=== PATIENT | female | born 1930 | race Caucasian/White ===

== ENCOUNTER 2017-08-27 10:44 | Inpatient (IN) | payer MEDICARE ==
[~2017-08-27] VITALS: Ht 157.5 cm; Wt 52.0 kg
[2017-08-27 11:21] LABS: URINE BLOOD (Dip) POC 2+ (NEGATIVE)
--- NOTE | 2017-08-27 11:22 | ERA ---
ER Documentation Chief Complaint Date/Time DATE: 08/27/17 TIME: 11:21 Chief Complaint FACIAL RASH AND FEVER HPI The patient is a 86-year-old female,presenting to the ER because of fever, facial rash for unknown duration. She is demented, history is limited. She is from home with a caregiver Past medical/surgical history/review of system/social history: unable to obtain due to her condition ROS All systems reviewed and are negative except as per history of present illness. Allergies Allergies: Coded Allergies: No Known Allergy (Unverified , 08/27/17) Physical Exam Vitals Vital Signs Date Time Temp Pulse Resp B/P Pulse Ox O2 Delivery O2 Flow Rate FiO2 08/27/17 15:06 95 18 120/72 100 Room Air 08/27/17 10:56 101.3 101 20 137/63 96 Physical Exam Const: No acute distress. Head: Atraumatic. Eyes: Normal Conjunctiva. bilateral maxillary erythema ENT: Normal External Ears, Nose and Mouth. Neck: Full range of motion. No meningismus. Resp: Clear to auscultation bilaterally. Cardio: Regular rate and rhythm. Abd: Soft, non distended, normal bowel sounds, non tender. Skin: No petechiae or rashes. Back: No midline or flank tenderness. Ext: No cyanosis, or edema. Neur: Limited due to her condition Psych: Unable obtain due to her condition Result Diagram: 08/27/17 1230 08/27/17 1400 Results 24 hrs Laboratory Tests Test 08/27/17 11:15 08/27/17 11:28 08/27/17 12:22 08/27/17 12:30 Urine Color YELLOW Urine Clarity SLIGHTLY CLOUDY Urine pH 6.0 Urine Specific Matthews 1.015 Urine Ketones NEGATIVEmg/dL Urine Nitrite POSITIVEmg/dL Urine Bilirubin NEGATIVEmg/dL Urine Urobilinogen 2+mg/dL Urine Leukocyte Esterase TRACELeu/ul Urine Microscopic RBC 6/HPF Urine Microscopic WBC 45/HPF Urine Bacteria FEW/HPF Urine Mucus FEW/HPF Urine Hemoglobin 1+mg/dL Urine Glucose NEGATIVEmg/dL Urine Total Protein 2+mg/dl Bedside Urine pH (LAB) 7.0 Bedside Urine Protein (LAB) 2+ Bedside Urine Glucose (UA) Negative Bedside Urine Ketones (LAB) Negative Bedside Urine Blood 2+ Bedside Urine Nitrite (LAB) Positive Bedside Urine Leukocyte Esterase (L 1+ Lactic Acid Level 3.2mmol/L White Blood Count 13.110^3/ul Red Blood Count 5.2910^6/ul Hemoglobin 15.9g/dl Hematocrit 46.7% Mean Corpuscular Volume 88.3fl Mean Corpuscular Hemoglobin 30.1pg Mean Corpuscular Hemoglobin Concent 34.0g/dl Red Cell Distribution Width 14.2% Platelet Count 88253^3/UL Mean Platelet Volume 10.8fl Neutrophils % 82.4% Lymphocytes % 8.2% Monocytes % 8.1% Eosinophils % 0.1% Basophils % 0.4% Nucleated Red Blood Cells % 0.0/100WBC Neutrophils # 10.810^3/ul Lymphocytes # 1.110^3/ul Monocytes # 1.110^3/ul Eosinophils # 0.010^3/ul Basophils # 0.110^3/ul Nucleated Red Blood Cells # 0.010^3/ul Test 08/27/17 14:00 Prothrombin Time 12.9Sec Prothrombin Time Ratio 1.0 INR International Normalized Ratio 0.97 Activated Partial Thromboplast Time 32.0Sec Sodium Level 138mmol/L Potassium Level 4.6mmol/L Chloride Level 105mmol/L Carbon Dioxide Level 20mmol/L Anion Gap 18 Blood Urea Nitrogen 14mg/dl Creatinine 0.92mg/dl Glucose Level 111mg/dl Calcium Level 8.5mg/dl Total Bilirubin 0.5mg/dl Direct Bilirubin 0.00mg/dl Indirect Bilirubin 0.5mg/dl Aspartate Amino Transf (AST/SGOT) 38IU/L Alanine Aminotransferase (ALT/SGPT) 41IU/L Alkaline Phosphatase 117IU/L Troponin I < 0.012ng/ml Total Protein 8.0g/dl Albumin 4.0g/dl Globulin 4.00g/dl Albumin/Globulin Ratio 1.00 Current Medications Medications (Trade) Dose Ordered Sig/[place] Route PRN Reason Start Time Stop Time Status Last Admin Dose Admin Acetaminophen (Tylenol Tab) 650 mg ONCE STAT PO 08/27/17 11:26 08/27/17 11:29 DC 08/27/17 11:26 Lidocaine 5 ml 5 ml ONCE ONCE SC 08/27/17 12:30 08/27/17 12:31 DC 08/27/17 13:28 Sodium Chloride 1,470 ml @ 1,470 mls/hr BOLUS X1 ONCE IV 10/9/17 13:30 08/27/17 14:29 DC 08/27/17 13:28 Piperacillin Sod/ Tazobactam Sod 100 ml @ 200 mls/hr ONCE ONCE IVPB 08/27/17 13:30 08/27/17 13:59 DC 08/27/17 15:00 Vancomycin HCl (Vancocin) 250 ml @ 125 mls/hr ONCE IVPB 08/27/17 13:30 08/27/17 15:29 DC Alprazolam (Xanax) 0.25 mg ONCE ONCE PO 08/27/17 14:30 08/27/17 14:31 DC 08/27/17 14:37 Procedures/[place] [id number] Radiology Main Line: [phone] DIAGNOSTIC IMAGING REPORT Patient: SUSAN NDIAYE : 1930 Age: 86 Sex: F MR #: [id number] DOS: 08/27/17 1126 Ordering MD: HUMBERTO HEWITT MD Location: E/R Room/Bed: PROCEDURE: XR Chest. CLINICAL INDICATION: Sepsis TECHNIQUE: An AP view of the chest was obtained. COMPARISON: No prior exam is available for comparison. FINDINGS: There is prominence of the interstitial markings. There is left basilar atelectasis. No pleural effusion or pneumothorax is seen. The cardiomediastinal silhouette is within normal limits for size. Calcifications are seen within the aortic arch. The osseous structures demonstrate senescent changes. IMPRESSION: 1. Mild prominence of the interstitial markings, may reflect mild underlying interstitial edema or chronic lung changes. 2. Left basilar atelectasis. 3. Aortic atherosclerosis. RPTAT: HH .Lyla Machado MD, Date Time Electronically viewed and signed by .Lyla Machado MD, on 08/27/2017 12 :51 .G/ CC: HUMBERTO HEWITT MD EKG: Read by emergency physician Rate/Rhythm: Normal Sinus Rhythm 89 beats/min QRS, ST, T-waves: No ST elevation, no T inversion, Right bundle branch block , inferior Q waves Impression: Abnormal EKG MEDICAL MAKING DECISION: The patient is a 86-year-old female, presenting with acute severe sepsis due to acute cystitis. She was treated with Tylenol for fever, normosaline 30 mL/kg IV, Zosyn IV, vancomycin IV with good response. The differential diagnoses considered include but are not limited to UTI, pyelonephritis, pneumonia Admit MDM: Patient's infectious symptoms have not stabilized and the patient is at risk of rapid decompensation. The patient will be admitted for careful hydration, antibiotic therapy, and infectious source control. Severe Sepsis criteria: Infectious source: UTI End organ damage indicated by: Lactate > 2.0 mmol/L Sepsis Management: Time of recognition of severe sepsis/septic shock: 1:20 pm Within 3 hours of recognition: Blood cultures x 2 before broad-spectrum antibiotics: Yes 30 ml/kg NS bolus completed Initial lactate 3.2 Repeat lactate pending Critical Care: Critical care time 35 minutes excluding billable procedure Emergent fluid management while maintaining close respiratory support. Provision of immediate and broad-spectrum antibiotic therapy. Simultaneous assessment for possible sources in order to direct targeted therapy. Consideration for invasive and chemical support to prevent cardiopulmonary collapse. Septic Shock Assessment: Any lactic acid > 4.0 no Persistent hypotension (SBP < 90 or 40 mmHg drop, MAP < 65) despite 30 mL/kg IV fluid bolusno Departure Diagnosis: Primary Impression: Severe sepsis Additional Impression: UTI (urinary tract infection) Condition: Stable Comments I discussed the findings with the patient. I discussed the patient with the on- call hospitalist Dr. Fletcher at 2:25 PM who was made aware of the lab, the treatment, the patient condition. The patient is admitted to telemetry HUMBERTO HEWITT MD Aug 27, 2017 11:22
[2017-08-27] MEDS ORDERED: ACETAMINOPHEN 325 MG TAB PO STA (11:26)
[2017-08-27 11:50] LABS: ADD UMIC YES; UR ASCORBIC ACID NEGATIVE (NEGATIVE); UR BACTERIA FEW /HPF (NONE SEEN); UR BILIRUBIN (Dip) NEGATIVE (NEGATIVE); UR BLOOD (Dip) 1+ mg/dL (NEGATIVE); UR CLARITY SLIGHTLY CLOUDY (CLEAR); UR COLOR YELLOW (YELLOW); UR GLUCOSE (Dip) NEGATIVE (NEGATIVE); UR KETONES (Dip) NEGATIVE (NEGATIVE); UR LEUKOCYTE ESTERASE (Dip) TRACE Leu/ul (NEGATIVE); UR MUCUS FEW /HPF (NONE SEEN); UR NITRITE (Dip) POSITIVE (NEGATIVE); UR RBC 6 /HPF (0-5); UR SPECIFIC GRAVITY (Dip) 1.015 (1.003-1.030); UR TOTAL PROTEIN (Dip) 2+ mg/dl (NEGATIVE); UR UROBILINOGEN (Dip) 2+ mg/dL (NEGATIVE)
[2017-08-27] MEDS ORDERED: LIDOCAINE 1% (MPF) 5 ML VIAL SC ONE (12:30)
--- NOTE | 2017-08-27 12:52 | RADRPT ---
PROCEDURE: XR Chest. CLINICAL INDICATION: Sepsis TECHNIQUE: An AP view of the chest was obtained. COMPARISON: No prior exam is available for comparison. FINDINGS: There is prominence of the interstitial markings. There is left basilar atelectasis. No pleural eff usion or pneumothorax is seen. The cardiomediastinal silhouette is within normal limits for size. C alcifications are seen within the aortic arch. The osseous structures demonstrate senescent changes . IMPRESSION: 1. Mild prominence of the interstitial markings, may reflect mild underlying interstitial edema or chronic lung changes. 2. Left basilar atelectasis. 3. Aortic atherosclerosis. RPTAT: HH .Lyla Machado MD, MD Date Time Electronically viewed and signed by .Lyla Machado MD, on 08/27/2017 12:51 .G/
[2017-08-27 12:59] LABS: URINE BLOOD (Dip) POC 2+ (NEGATIVE)
[2017-08-27] MEDS ORDERED: VANCOMYCIN 1 GM (PMX) 250 ML IVPB SCH (13:30)
[2017-08-27] MEDS ORDERED: SOD CHLORIDE 0.9% IV ONE ×2 (13:30→18:00)
[2017-08-27] MEDS ORDERED: PIPER-TAZO 3.375 GM IV (PMX) 100 ML IVPB ONE (13:30)
[2017-08-27 13:37] LABS: BASOPHIL # 0.1 10^3/ul (0.0-0.1); BASOPHILS % 0.4 % (0.0-2.0); EOSINOPHILS % 0.1 % (0.0-7.0); HEMATOCRIT 46.7 % (37.0-47.0); HEMOGLOBIN 15.9 g/dl (12.0-16.0); LYMPHOCYTES # 1.1 10^3/ul (0.8-2.9); LYMPHOCYTES % 8.2 % (15.0-51.0); MEAN CORPUSCULAR HEMOGLOBIN 30.1 pg (29.0-33.0); MEAN CORPUSCULAR VOLUME 88.3 fl (82.0-101.0); MEAN PLATELET VOLUME 10.8 fl (7.4-10.4); MONOCYTE # 1.1 10^3/ul (0.3-0.9); MONOCYTES % 8.1 % (0.0-11.0); NEUTROPHIL # 10.8 10^3/ul (1.6-7.5); NEUTROPHILS % 82.4 % (39.0-77.0); PLATELET COUNT 159 10^3/UL (140-415); RED BLOOD COUNT 5.29 10^6/ul (4.20-5.40); RED CELL DISTRIBUTION WIDTH 14.2 % (11.5-14.5); WHITE BLOOD COUNT 13.1 10^3/ul (4.8-10.8)
[2017-08-27 13:54] LABS: INR 0.97; PROTIME 12.9 Sec (12.2-14.2)
[2017-08-27] MEDS ORDERED: ALPRAZOLAM 0.25 MG TAB PO ONE (14:30)
[2017-08-27 15:15] LABS: ALANINE AMINOTRANSFERASE 41 IU/L (13-69); ALKALINE PHOSPHATASE 117 IU/L (42-121); ANION GAP 18 (8-16); ASPARTATE AMINO TRANSFERASE 38 IU/L (15-46); BILIRUBIN,INDIRECT 0.5 mg/dl (0-1.1); BILIRUBIN,TOTAL 0.5 mg/dl (0.2-1.3); BLOOD UREA NITROGEN 14 mg/dl (7-20); CALCIUM 8.5 mg/dl (8.4-10.2); CARBON DIOXIDE 20 mmol/L (21-31); CHLORIDE 105 mmol/L (97-110); CREATININE 0.92 mg/dl (0.44-1.00); GLUCOSE 111 mg/dl (70-220); POTASSIUM 4.6 mmol/L (3.5-5.1); SODIUM 138 mmol/L (135-144)
[2017-08-27 15:37] LABS: TROPONIN-I < 0.012 ng/ml (0.00-0.12)
[2017-08-27] MEDS ORDERED: LORAZEPAM 2 MG INJ IV ONE (16:00)
[2017-08-27] MEDS ORDERED: ACETAMINOPHEN 325 MG TAB PO PRN (18:00)
[2017-08-27] MEDS ORDERED: NACL 0.9% 3 ML SYG IV SCH (18:00)
[2017-08-27] MEDS ORDERED: BISACODYL 10 MG SUPP PR PRN (18:00)
[2017-08-27] MEDS ORDERED: ACETAMINOPHEN 650 MG SUPP PR PRN (18:00)
[2017-08-27] MEDS ORDERED: HYDROCODONE/APAP (5/325) TAB PO PRN ×2 (18:00)
[2017-08-27] MEDS ORDERED: MAGNESIUM HYDROXIDE 30ML CUP PO PRN (18:00)
[2017-08-27] MEDS ORDERED: morphine 2 MG INJ IV PRN (18:00)
[2017-08-27] MEDS ORDERED: VANCOMYCIN IV PER PHARMACY XX SCH (18:00)
[2017-08-27] MEDS ORDERED: DOCUSATE SODIUM 100 MG CAP PO PRN (18:00)
[2017-08-27] MEDS ORDERED: ONDANSETRON 4 MG INJ IV PRN (18:00)
--- NOTE | 2017-08-27 18:12 | RADRPT ---
PROCEDURE: XR Chest. CLINICAL INDICATION: PICC placement. TECHNIQUE: Chest x-ray, single view. COMPARISON: 08/27/2017 at 1206 hours. FINDINGS: The cardiac silhouette is slightly magnified. Thoracic aortic atherosclerotic calcification is obser rula. Low lung volumes are observed. Prominent basilar interstitial lung markings are again identifie d and unchanged. Left basilar atelectatic changes are also present. A left upper extremity PICC is i n place and terminates within the lower SVC , which is satisfactory in position. Degenerative duncan ges of the spine are observed. IMPRESSION: Satisfactory positioning of left upper extremity PICC. Low lung volumes with left basilar atelectatic changes. RPTAT: HLST .Judith Pop MD, MD Date Time Electronically viewed and signed by .Judith Pop MD, on 08/27/2017 18:12 .T/
[2017-08-27] MEDS ORDERED: SOD CHLORIDE 0.9% 100 ML ONE (19:21)
[2017-08-27 19:51] VITALS: BP 107/51; RESP 18
[2017-08-27 20:16] VITALS: PULSE 82
[2017-08-27] MEDS: SOD CHLORIDE 0.9% 1,000 ML IV SCH (21:23)
[2017-08-27 21:48] VITALS: Ht 157.5 cm; Wt 52.0 kg
[2017-08-27 23:50] VITALS: BP 116/59; RESP 18
[2017-08-28] VITALS (12 sets, daily range): BP systolic 99–131; BP diastolic 51–67; PULSE 68–101; RESP 18–20
[2017-08-28] MEDS: CEFEPIME 2GM/50 ML (PMX) 50 ML IVPB SCH ×2 (00:33→05:09)
[2017-08-28] MEDS ORDERED: PANTOPRAZOLE 40 MG INJ IV SCH (06:00)
[2017-08-28] MEDS: SOD CHLORIDE 0.9% 1,000 ML IV SCH (06:30)
--- NOTE | 2017-08-28 06:51 | HP ---
Date/Time of Note Date/Time of Note DATE: 08/28/17 TIME: 06:45 Assessment/Plan VTE Prophylaxis VTE Prophylaxis Intervention: heparin Lines/Catheters IV Catheter Type (from Nrs): PICC Line Assessment/Plan Assessment/Plan 1. Sepsis, secondary to UTI and facial cellulitis -IV antibiotic -Follow-up culture results 2. Metabolic acidosis, secondary to above -Treat infection, IV fluid 3. Severe dementia -Continue home meds HPI/ROS Admit Date/Time Admit Date/Time Aug 27, 2017 at 15:47 Hx of Present Illness This is an 86 lesion in the dementia is brought to the ER and facial redness. Patient is not oriented and unable to give any meaningful history and as such information is gathered from chart review. When patient presented to the ER, she had a white count of 13.1, bicarb 20, initial lactic 3.2 which increased to 6.3 but the third 1 normalized 1.1. Urinalysis is consistent with UTI. On physical exam, she does have redness on both of her cheeks and her nose as well as left [place]-orbital area. PMH/Family/Social Past Medical History Medical History: hypertension, other (Dementia) Social History Alcohol Use: none Smoking Status: Never smoker Drug Use: none Exam/Review of Systems Vital Signs Vitals Vital Signs Date Time Temp Pulse Resp B/P Pulse Ox O2 Delivery O2 Flow Rate FiO2 08/28/17 04:14 72 08/28/17 03:59 98.3 18 110/54 96 08/27/17 17:59 Room Air Intake and Output 08/27/17 08/27/17 08/28/17 15:00 23:00 07:00 Intake Total 1770 ml Balance 1770 ml Exam Constitutional: other (Sleepy, but arousable. No acute distress) Psych: confusion Head: atraumatic, normocephalic Eyes: other (Left periorbital erythema) ENMT: other (Bilateral facial erythema) Respiratory: clear to auscultation, normal air movement Cardiovascular: nl pulses, regular rate and rhythm Gastrointestinal: non-tender, soft Extremities: normal pulses Labs Result Diagram: 08/27/17 1230 08/27/17 1400 Medications Medications Current Medications Cefepime HCl 50 ml @ 100 mls/hr Q8 IVPB Last administered on 08/28/17t 05:09 ; Admin Dose 100 MLS/HR; Start 08/27/17 at 22:00 Sodium Chloride (NS) 1,000 ml @ 80 mls/hr [id number] IV Last administered on 08/27 21:23; Admin Dose 80 MLS/HR; Start 08/27/17 at 18:00 Ondansetron HCl (Zofran Inj) 4 mg Q6H PRN IV NAUSEA AND/OR VOMITING; Start 08/27/17 at 18:00 Acetaminophen (Tylenol Tab) 650 mg Q6H PRN [place] PAIN LEVEL 1-3 OR FEVER; Start 08/27/17 at 18:00 Acetaminophen (Tylenol Supp) 650 mg Q6H PRN [place] PAIN LEVEL 1-3 OR FEVER; Start 08/27/17 at 18:00 Acetaminophen/ Hydrocodone Bitart ([place] (5/325)) 1 tab Q6H PRN PO MODERATE PAIN LEVEL 4-6; Start 08/27/17 at 18:00 Acetaminophen/ Hydrocodone Bitart ([place] (5/325)) 2 tab Q6H PRN PO SEVERE PAIN LEVEL 7-10; Start 08/27/17 at 18:00 Morphine Sulfate (morphine) 2 mg Q4H PRN IV SEVERE PAIN LEVEL 7-10; Start 08/27 at 18:00 Docusate Sodium (Colace) 100 mg Q12H PRN PO CONSTIPATION; Start 08/27/17 at 18: 00 Magnesium Hydroxide (Milk Of Mag) 30 ml DAILY PRN PO CONSTIPATION; Start at 18:00 Bisacodyl (Dulcolax Supp) 10 mg DAILY PRN [place] CONSTIPATION; Start 08/27/17 at 18 :00 Pantoprazole (Protonix Iv) 40 mg DAILY@06 IV Last administered on 08/28/17 05 :09; Admin Dose 40 MG; Start 08/28/17 at 06:00 IV Flush 10 ml 10 ml PRN PRN IV IV PROTOCOL; Start 08/27/17 at 19:00 Vancomycin HCl (Vancocin) 100 ml @ 100 mls/hr Q24H IVPB ; Start 08/28/17 at 16 :30 RUBEN MARTIN MD Aug 28, 2017 06:51
[2017-08-28 09:04] LABS: ALBUMIN/GLOBULIN RATIO 0.83; BILIRUBIN,INDIRECT 0.4 mg/dl (0-1.1); BILIRUBIN,TOTAL 0.4 mg/dl (0.2-1.3); CALCIUM 8.2 mg/dl (8.4-10.2); CHOL/HDL RATIO 3.2 RATIO; CREATININE 0.81 mg/dl (0.44-1.00); MAGNESIUM 1.9 mg/dl (1.7-2.5); PHOSPHORUS 3.1 mg/dl (2.5-4.9); POTASSIUM 3.2 mmol/L (3.5-5.1); TOTAL PROTEIN 6.6 g/dl (6.1-8.1)
[2017-08-28 09:17] LABS: T3 UPTAKE 42.1 % (23.5-40.5)
[2017-08-28 09:31] LABS: THYROID STIMULATING HORMONE 2.96 MIU/L (0.465-4.680)
--- NOTE | 2017-08-28 10:40 | RADRPT ---
PROCEDURE: US guidance for PICC line CLINICAL INDICATION: PICC line placement TECHNIQUE: Multiple real-time images were acquired of the patient's arm utilizing a high resolutio n transducer. This was performed by the PICC line nurse for venous access. COMPARISON: None FINDINGS: See impression. IMPRESSION: Ultrasound guidance for PICC line placement. There is a patent and compressible left upper extremity vein. RPTAT: AA Physician Quinten Date Time Electronically viewed and signed by Physician Quinten on 08/28/2017 10:39 RA/
--- NOTE | 2017-08-28 14:29 | CONS ---
Date/Time of Note Date/Time of Note DATE: 08/28/17 TIME: 14:22 Assessment/Plan Assessment/Plan Additional Assessment/Plan This is a 86-year-old debilitated female, who appears to be malnourished dehydrated and disheveled . I have placed a phone call out to person to notify and left a message on voicemail. Will address patient CODE STATUS, address her activities of daily living, address symptoms and changes in her cognitive status if any. There are palliative care issues will be discussed in detail with family members.. Goals of care will be addressed at that time. Consultation Date/Type/Reason Admit Date/Time Aug 27, 2017 at 15:47 Type of Consultation: Palliative care Hx of Present Illness Asked to see this 86-year-old female who was admitted [facility] with facial cellulitis and what appears to be delirium on dementia. It is not absolutely no historian not recall why she was admitted to the hospital where she lives for the name of any family members. She is in no acute distress requires a sitter for agitation and attempting to get out of the bed unassisted. Otherwise all information is taken from patient's medical records. She was admitted for facial cellulitis findings consistent with underlying infectious process. Psychological: confusion Past Medical History Medical History: hypertension, other (Dementia) Social History Alcohol Use: none Smoking Status: Never smoker Drug Use: none Exam/Review of Systems Vital Signs Vitals Vital Signs Date Time Temp Pulse Resp B/P Pulse Ox O2 Delivery O2 Flow Rate FiO2 08/28/17 11:51 98.5 71 18 99/57 97 08/27/17 17:59 Room Air Intake and Output 08/27/17 08/27/17 08/28/17 15:00 23:00 07:00 Intake Total 1770 ml Balance 1770 ml Exam Constitutional: frail, other (Disheveled appearing female in no major acute distress) Psych: anxiety, confusion Head: other (Edema of the bilateral face, 1-2+ edema without streaks or flocculence, warm, grossly nonpainful) Neck: No bruits, No jvd, No masses, No non-tender, No nuchal rigidity, No other , No supple, No thyromegaly Respiratory: No clear to auscultation, No congested cough, No crackles/rales, No diminished breath sounds, No intercostal retraction, No labored breathing, No normal air movement, No other, No respirations, No tactile fremitus, No wheezing Cardiovascular: No S3, No S4, No bruits, No diastolic murmur, No edema, No gallop, No irregular rhythm, No jugular venous distention (JVD), No murmurs/ extra sounds, No nl pulses, No other, No regular rate and rhythm, No rub, No systolic murmur Neurological: other (Oriented 0 pain nerves II through XII grossly intact motor sensory findings grossly within normal limits) Results Result Diagram: 08/27/17 1230 08/28/17 0833 Results 24 hrs Laboratory Tests Test 08/27/17 14:55 08/27/17 18:00 08/28/17 07:00 08/28/17 08:33 Lactic Acid Level 6.3 *H 1.1 Hemoglobin A1c 5.6 Sodium Level 138 Potassium Level 3.2 L Chloride Level 108 Carbon Dioxide Level 26 Anion Gap 7 #L Blood Urea Nitrogen 8 Creatinine 0.81 Glucose Level 94 Calcium Level 8.2 L Phosphorus Level 3.1 Magnesium Level 1.9 Total Bilirubin 0.4 Direct Bilirubin 0.00 Indirect Bilirubin 0.4 Aspartate Amino Transf (AST/SGOT) 27 Alanine Aminotransferase (ALT/SGPT) 42 Alkaline Phosphatase 86 Total Protein 6.6 # Albumin 3.0 #L Globulin 3.60 H Albumin/Globulin Ratio 0.83 Triglycerides Level 74 Cholesterol Level 111 LDL Cholesterol, Calculated 62 HDL Cholesterol 34 Cholesterol/HDL Ratio 3.2 Thyroid Stimulating Hormone (TSH) 2.960 Free Thyroxine Index 2.99 Thyroxine (T4) 7.1 Triiodothyronine (T3) Uptake 42.1 H Medications Medications Current Medications Sodium Chloride (NS) 1,000 ml @ 80 mls/hr [id number] IV Last administered on 08/27t 21:23; Admin Dose 80 MLS/HR; Start 08/27/17 at 18:00 Ondansetron HCl (Zofran Inj) 4 mg Q6H PRN IV NAUSEA AND/OR VOMITING; Start 08/27/17 at 18:00 Acetaminophen (Tylenol Tab) 650 mg Q6H PRN PO PAIN LEVEL 1-3 OR FEVER; Start 08/27/17 at 18:00 Acetaminophen (Tylenol Supp) 650 mg Q6H PRN [place] PAIN LEVEL 1-3 OR FEVER; Start 08/27/17 at 18:00 Acetaminophen/ Hydrocodone Bitart ([place] (5/325)) 1 tab Q6H PRN PO MODERATE PAIN LEVEL 4-6; Start 08/27/17 at 18:00 Acetaminophen/ Hydrocodone Bitart ([place] (5/325)) 2 tab Q6H PRN PO SEVERE PAIN LEVEL 7-10; Start 08/27/17 at 18:00 Morphine Sulfate (morphine) 2 mg Q4H PRN IV SEVERE PAIN LEVEL 7-10; Start 08/27 at 18:00 Docusate Sodium (Colace) 100 mg Q12H PRN PO CONSTIPATION; Start 08/27/17 at 18: 00 Magnesium Hydroxide (Milk Of Mag) 30 ml DAILY PRN PO CONSTIPATION; Start at 18:00 Bisacodyl (Dulcolax Supp) 10 mg DAILY PRN [place] CONSTIPATION; Start 08/27/17 at 18 :00 Pantoprazole (Protonix Iv) 40 mg DAILY@06 IV Last administered on 08/28/17t 05 :09; Admin Dose 40 MG; Start 08/28/17 at 06:00 IV Flush 10 ml 10 ml PRN PRN IV IV PROTOCOL; Start 08/27/17 at 19:00 Vancomycin HCl 100 ml @ 100 mls/hr Q24H IVPB ; Start 08/28/17 at 16:30 Cefepime HCl (Maxipime 2gm/50 ml (Pmx)) 50 ml @ 100 mls/hr Q24H IVPB ; Start 08/29/17 at 06:00 JACKI CORNELL Aug 28, 2017 14:29
[2017-08-28] MEDS ORDERED: POTASSIUM CHLORIDE (SR) 20 MEQ TAB PO STA (15:04)
--- NOTE | 2017-08-28 15:14 | PN ---
Date/Time of Note Date/Time of Note DATE: 08/28/17 TIME: 15:04 Assessment/Plan VTE Prophylaxis VTE Prophylaxis Intervention: SCD's Lines/Catheters IV Catheter Type (from Nrsg): PICC Line Central line still needed: Yes Assessment/Plan Assessment/Plan 1. UTI, on antibiotics 2. Sepsis, IVF and antibiotics 3. Hypokalemia, KCl 4. Dementia, chronic Subjective 24 Hr Interval Summary Free Text/Dictation alert, demented Exam/Review of Systems Vital Signs Vitals Vital Signs Date Time Temp Pulse Resp B/P Pulse Ox O2 Delivery O2 Flow Rate FiO2 08/28/17 12:10 70 08/28/17 11:51 98.5 18 99/57 97 08/27/17 17:59 Room Air Intake and Output 08/27/17 08/27/17 08/28/17 15:00 23:00 07:00 Intake Total 1770 ml Balance 1770 ml Exam Constitutional: alert, well developed Head: atraumatic, normocephalic Eyes: EOMI, PERRL, nl conjunctiva, nl lids, nl sclera ENMT: nl external ears & nose, nl lips & teeth, nl nasal mucosa & septum Neck: non-tender, supple Respiratory: clear to auscultation, normal air movement, No congested cough, No crackles/rales, No diminished breath sounds, No intercostal retraction, No labored breathing, No other, No respirations, No tactile fremitus, No wheezing Cardiovascular: nl pulses, regular rate and rhythm, No S3, No S4, No bruits, No diastolic murmur, No edema, No gallop, No irregular rhythm, No jugular venous distention (JVD), No murmurs/extra sounds, No other, No rub, No systolic murmur Gastrointestinal: nl liver, spleen, non-tender, soft, No ascites, No bowel sounds, No distended, No firm, No hepatomegaly, No mass , No other, No rebound or guarding, No splenomegaly, No surgical scars, No tender Musculoskeletal: nl extremities to inspection Extremities: normal pulses, No calf tenderness, No clubbing, No cyanosis, No edema, No other, No palpable cord, No pitting pedal edema, No tenderness Neurological: [employer] II-XII intact, nl speech, nl strength Skin: nl turgor Results Result Diagram: 08/27/17 1230 08/28/17 0833 Results 24 hrs Laboratory Tests Test 08/27/17 18:00 08/28/17 07:00 08/28/17 08:33 Lactic Acid Level 1.1 Hemoglobin A1c 5.6 Sodium Level 138 Potassium Level 3.2 L Chloride Level 108 Carbon Dioxide Level 26 Anion Gap 7 #L Blood Urea Nitrogen 8 Creatinine 0.81 Glucose Level 94 Calcium Level 8.2 L Phosphorus Level 3.1 Magnesium Level 1.9 Total Bilirubin 0.4 Direct Bilirubin 0.00 Indirect Bilirubin 0.4 Aspartate Amino Transf (AST/SGOT) 27 Alanine Aminotransferase (ALT/SGPT) 42 Alkaline Phosphatase 86 Total Protein 6.6 # Albumin 3.0 #L Globulin 3.60 H Albumin/Globulin Ratio 0.83 Triglycerides Level 74 Cholesterol Level 111 LDL Cholesterol, Calculated 62 HDL Cholesterol 34 Cholesterol/HDL Ratio 3.2 Thyroid Stimulating Hormone (TSH) 2.960 Free Thyroxine Index 2.99 Thyroxine (T4) 7.1 Triiodothyronine (T3) Uptake 42.1 H Medications Medications Current Medications Sodium Chloride (NS) 1,000 ml @ 80 mls/hr [id number] IV Last administered on 08/27t 21:23; Admin Dose 80 MLS/HR; Start 08/27/17 at 18:00 Ondansetron HCl (Zofran Inj) 4 mg Q6H PRN IV NAUSEA AND/OR VOMITING; Start 08/27/17 at 18:00 Acetaminophen (Tylenol Tab) 650 mg Q6H PRN PO PAIN LEVEL 1-3 OR FEVER; Start 08/27/17 at 18:00 Acetaminophen (Tylenol Supp) 650 mg Q6H PRN [place] PAIN LEVEL 1-3 OR FEVER; Start 08/27/17 at 18:00 Acetaminophen/ Hydrocodone Bitart ([place] (5/325)) 1 tab Q6H PRN PO MODERATE PAIN LEVEL 4-6; Start 08/27/17 at 18:00 Acetaminophen/ Hydrocodone Bitart ([place] (5/325)) 2 tab Q6H PRN PO SEVERE PAIN LEVEL 7-10; Start 08/27/17 at 18:00 Morphine Sulfate (morphine) 2 mg Q4H PRN IV SEVERE PAIN LEVEL 7-10; Start 08/27 at 18:00 Docusate Sodium (Colace) 100 mg Q12H PRN PO CONSTIPATION; Start 08/27/17 at 18: 00 Magnesium Hydroxide (Milk Of Mag) 30 ml DAILY PRN PO CONSTIPATION; Start at 18:00 Bisacodyl (Dulcolax Supp) 10 mg DAILY PRN [place] CONSTIPATION; Start 08/27/17 at 18 :00 Pantoprazole (Protonix Iv) 40 mg DAILY@06 IV Last administered on 08/28/17t 05 :09; Admin Dose 40 MG; Start 08/28/17 at 06:00 IV Flush 10 ml 10 ml PRN PRN IV IV PROTOCOL; Start 08/27/17 at 19:00 Vancomycin HCl 100 ml @ 100 mls/hr Q24H IVPB ; Start 08/28/17 at 16:30 Cefepime HCl (Maxipime 2gm/50 ml (Pmx)) 50 ml @ 100 mls/hr Q24H IVPB ; Start 08/29/17 at 06:00 THOR EDWARDS MD Aug 28, 2017 15:14
--- NOTE | 2017-08-28 15:55 | CONS ---
DATE OF ADMISSION: 08/27/2017 DATE OF CONSULTATION: 08/28/2017 TYPE OF CONSULTATION: Infectious Disease. REASON FOR CONSULTATION: Antibiotic management. HISTORY OF PRESENT ILLNESS: Ruth Montoya is an 86-year-old female with a history of senile dementia w ho was brought in with facial redness. In the emergency room, her white count was 13.1. Initial la ctic acid was 3.2, increased to 6.3. The third was 1.1. Urinalysis was consistent with UTI. FAMILY HISTORY: Positive for hypertension and dementia. SOCIAL HISTORY: Noncontributory. She does not smoke, drink or abuse drugs. ALLERGIES: NONE TO PENICILLIN, SULFA OR FOODS. MEDICATIONS: Per chart. REVIEW OF SYSTEMS: Noncontributory. PHYSICAL EXAMINATION: GENERAL: The patient is an elderly appearing female who is sleepy but arousable, no acute distress. VITAL SIGNS: Stable. She is afebrile. SKIN: Without generalized rash. HEENT: She has bilateral facial erythema and left periorbital erythema. NECK: Supple. LYMPH NODES: None palpable. CHEST: Decreased breath sounds at the bases. HEART: Without murmur or gallop. ABDOMEN: Soft, nontender, without organosplenomegaly or masses. EXTREMITIES: Without cyanosis, clubbing, or edema. RECTAL AND GENITAL: Deferred. NEUROLOGIC: No focal neurological abnormalities. ANCILLARY LABORATORY DATA: White count on admission was 13.1, H and H 15.9 and 46.7, platelet count 159,000. BUN and creatinine is 14/0.92 with a CO2 of 20. Today, her urine was positive for nitrit e and trace leukocyte esterase, 45 white cells per high-power field. Her BUN and creatinine are 14/ 0.92 and 8/0.81. Chest x-ray shows prominence of interstitial markings, may reflect underlying interstitial edema and chronic lung changes. IMPRESSION AND PLAN: The patient has cellulitis involving her face. She also has urinary tract inf ection growing gram-negative rods. She was placed on vancomycin and cefepime and I concur with that assessment since she does come from a senior care facility. At least I presume she does. I wi ll dictate my findings to the hospitalist. Dictated By: HEIDI GIBBONS MD, JD/EMANI Conf#: [id number] [facility]#: [id number]
[2017-08-28] MEDS: VANCOMYCIN 500MG/NS (PMX) 100 ML IVPB SCH (16:11)
[2017-08-28] MEDS: NS + KCL 20 MEQ 1,000 ML IV SCH (16:11)
[2017-08-28] MEDS ORDERED: CEFTRIAXONE 1 GM/50 ML (PMX) 50 ML IVPB SCH (17:00)
[2017-08-29] VITALS (11 sets, daily range): BP systolic 120–151; BP diastolic 55–65; PULSE 72–86; RESP 18–20
[2017-08-29] MEDS: PANTOPRAZOLE (EC) 40 MG TAB PO SCH (05:20)
[2017-08-29] MEDS: CEFEPIME 2GM/50 ML (PMX) 50 ML IVPB SCH (05:20)
[2017-08-29] MEDS: NS + KCL 20 MEQ 1,000 ML IV SCH ×2 (05:20→16:30)
[2017-08-29] MEDS ORDERED: CEFEPIME 2GM/50 ML (PMX) 50 ML IVPB SCH (06:00)
[2017-08-29 08:39] LABS: CALCIUM 8.3 mg/dl (8.4-10.2); CREATININE 0.81 mg/dl (0.44-1.00); POTASSIUM 3.4 mmol/L (3.5-5.1)
[2017-08-29 09:59] LABS: BASOPHIL # 0.1 10^3/ul (0.0-0.1); BASOPHILS % 1.1 % (0.0-2.0); EOSINOPHILS # 0.4 10^3/ul (0.0-0.5); HEMATOCRIT 40.7 % (37.0-47.0); HEMOGLOBIN 13.6 g/dl (12.0-16.0); LYMPHOCYTES % 22.6 % (15.0-51.0); MEAN CORPUSCULAR HEMOGLOBIN 29.9 pg (29.0-33.0); MEAN CORPUSCULAR HGB CONC 33.4 g/dl (32.0-37.0); MEAN CORPUSCULAR VOLUME 89.5 fl (82.0-101.0); MEAN PLATELET VOLUME 10.4 fl (7.4-10.4); MONOCYTE # 0.9 10^3/ul (0.3-0.9); MONOCYTES % 9.9 % (0.0-11.0); NEUTROPHIL # 5.4 10^3/ul (1.6-7.5); NEUTROPHILS % 60.6 % (39.0-77.0); PLATELET COUNT 223 10^3/UL (140-415); RED BLOOD COUNT 4.55 10^6/ul (4.20-5.40); RED CELL DISTRIBUTION WIDTH 14.3 % (11.5-14.5); WHITE BLOOD COUNT 8.9 10^3/ul (4.8-10.8)
--- NOTE | 2017-08-29 14:28 | PN ---
Date/Time of Note Date/Time of Note DATE: 08/29/17 TIME: 14:23 Assessment/Plan VTE Prophylaxis VTE Prophylaxis Intervention: SCD's Lines/Catheters IV Catheter Type (from Nrsg): PICC Line Central line still needed: Yes Assessment/Plan Assessment/Plan 1. UTI, E. Coli, on antibiotics per ID 2. Sepsis, IVF and antibiotics 3. Hypokalemia, KCl 4. Dementia, chronic Subjective 24 Hr Interval Summary Free Text/Dictation alert but demented Exam/Review of Systems Vital Signs Vitals Vital Signs Date Time Temp Pulse Resp B/P Pulse Ox O2 Delivery O2 Flow Rate FiO2 08/29/17 12:11 77 08/29/17 11:15 98.6 19 136/59 98 08/27/17 17:59 Room Air Intake and Output 08/28/17 08/28/17 08/29/17 15:00 23:00 07:00 Intake Total 1300 ml 880 ml Balance 1300 ml 880 ml Exam Constitutional: alert, well developed Head: atraumatic, normocephalic Eyes: EOMI, PERRL, nl conjunctiva, nl lids ENMT: nl external ears & nose, nl lips & teeth, nl nasal mucosa & septum Neck: non-tender, supple Respiratory: clear to auscultation, normal air movement, No congested cough, No crackles/rales, No diminished breath sounds, No intercostal retraction, No labored breathing, No other, No respirations, No tactile fremitus, No wheezing Cardiovascular: nl pulses, regular rate and rhythm, No S3, No S4, No bruits, No diastolic murmur, No edema, No gallop, No irregular rhythm, No jugular venous distention (JVD), No murmurs/extra sounds, No other, No rub, No systolic murmur Gastrointestinal: nl liver, spleen, non-tender, soft, No ascites, No bowel sounds, No distended, No firm, No hepatomegaly, No mass , No other, No rebound or guarding, No splenomegaly, No surgical scars, No tender Musculoskeletal: nl extremities to inspection, No joint tenderness, No muscle tone, No muscle weakness, No nl gait and stance, No other, No range of motion, No spine non-tender, No swelling Extremities: normal pulses, No calf tenderness, No clubbing, No cyanosis, No edema, No other, No palpable cord, No pitting pedal edema, No tenderness Neurological: MOBILE CRANE OPERATOR II-XII intact, confused, nl speech, nl strength Results Result Diagram: 08/29/17 0926 08/29/17 0700 Results 24 hrs Laboratory Tests Test 08/29/17 07:00 08/29/17 09:26 Sodium Level 141 Potassium Level 3.4 L Chloride Level 109 Carbon Dioxide Level 26 Anion Gap 9 Blood Urea Nitrogen 7 Creatinine 0.81 Glucose Level 98 Calcium Level 8.3 L White Blood Count 8.9 # Red Blood Count 4.55 Hemoglobin 13.6 Hematocrit 40.7 Mean Corpuscular Volume 89.5 Mean Corpuscular Hemoglobin 29.9 Mean Corpuscular Hemoglobin Concent 33.4 Red Cell Distribution Width 14.3 Platelet Count 223 # Mean Platelet Volume 10.4 Neutrophils % 60.6 Lymphocytes % 22.6 Monocytes % 9.9 Eosinophils % 4.0 Basophils % 1.1 Nucleated Red Blood Cells % 0.0 Neutrophils # 5.4 Lymphocytes # 2.0 Monocytes # 0.9 Eosinophils # 0.4 Basophils # 0.1 Nucleated Red Blood Cells # 0.0 Medications Medications Current Medications Ondansetron HCl (Zofran Inj) 4 mg Q6H PRN IV NAUSEA AND/OR VOMITING; Start 08/27/17 at 18:00 Acetaminophen (Tylenol Tab) 650 mg Q6H PRN PO PAIN LEVEL 1-3 OR FEVER; Start 08/27/17 at 18:00 Acetaminophen (Tylenol Supp) 650 mg Q6H PRN [place] PAIN LEVEL 1-3 OR FEVER; Start 08/27/17 at 18:00 Acetaminophen/ Hydrocodone Bitart ([place] (5/325)) 1 tab Q6H PRN PO MODERATE PAIN LEVEL 4-6; Start 08/27/17 at 18:00 Acetaminophen/ Hydrocodone Bitart ([place] (5/325)) 2 tab Q6H PRN PO SEVERE PAIN LEVEL 7-10; Start 08/27/17 at 18:00 Morphine Sulfate (morphine) 2 mg Q4H PRN IV SEVERE PAIN LEVEL 7-10; Start 08/27 at 18:00 Docusate Sodium (Colace) 100 mg Q12H PRN PO CONSTIPATION; Start 08/27/17 at 18: 00 Magnesium Hydroxide (Milk Of Mag) 30 ml DAILY PRN PO CONSTIPATION; Start at 18:00 Bisacodyl (Dulcolax Supp) 10 mg DAILY PRN [place] CONSTIPATION; Start 08/27/17 at 18 :00 IV Flush 10 ml 10 ml PRN PRN IV IV PROTOCOL; Start 08/27/17 at 19:00 Vancomycin HCl 100 ml @ 100 mls/hr Q24H IVPB Last administered on 08/28/17 16:11; Admin Dose 100 MLS/HR; Start 08/28/17 at 16:30 Potassium Chloride/Sodium Chloride (NS-KCl 20 Meq) 1,000 ml @ 80 mls/hr [id number] IV Last administered on 08/29/17 05:20; Admin Dose 80 MLS/HR; Start 08/28/17 at 15:30 Pantoprazole 40 mg 40 mg DAILY@06 PO Last administered on 08/29/17 05:20; Admin Dose 40 MG; Start 08/29/17 at 06:00 Cefepime HCl (Maxipime 2gm/50 ml (Pmx)) 50 ml @ 100 mls/hr Q24H IVPB Last administered on 08/29/17 05:20; Admin Dose 100 MLS/HR; Start 08/29/17 at 06: 00 Miscellaneous Information (*Rx Drug Level Order Reminder*) VANCOMYCIN TROUGH AT 1530 ONCE ONCE XX ; Start 08/30/17 at 15:30; Stop 08/30/17 at 15:31 THOR EDWARDS MD Aug 29, 2017 14:28
--- NOTE | 2017-08-29 15:10 | PN ---
DATE: 08/29/2017 SUBJECTIVE: The patient is awake, looks comfortable, no fevers overnight. WBC today 8.9, no shift, no bands. BUN 7, creatinine 0.81. MICROBIOLOGY: Urine culture grew E. coli and alpha hemolytic strep species. ANTIMICROBIALS: The patient is on IV vancomycin and cefepime. PHYSICAL EXAMINATION: GENERAL: This is a chronically ill-appearing, elderly woman who is in no distress. HEENT: Head atraumatic, normocephalic. Sclerae anicteric. NECK: The patient has a significant swelling of the face and periorbital that is getting better tod ay. Buccal mucosa dry. NECK: Supple. CHEST: Rise symmetrical. Breath sounds diminished. HEART: S1, S2. ABDOMEN: Soft, bowel tones present. EXTREMITIES: No cyanosis. ASSESSMENT: 1. Facial cellulitis. 2. Urinary tract infection. 3. Dementia. 4. Hypertension. PLAN: Patient remains stable. Continue present care, antibiotics, monitor postvoid residuals, awai t for clinical improvement. Dictated By: MAGDALENE HUMMEL REPAIR MECHANIC for HEIDI CAMPBELL/EMANI Conf#: [id number] [facility]#: [id number]
[2017-08-29] MEDS: VANCOMYCIN 500MG/NS (PMX) 100 ML IVPB SCH (16:35)
--- NOTE | 2017-08-29 16:48 | CONS ---
Date/Time of Note Date/Time of Note DATE: 08/29/17 TIME: 16:42 Assessment/Plan Assessment/Plan Chief Complaint/Hosp Course Asked to see this 86-year-old female who was admitted [facility] with facial cellulitis and what appears to be delirium on dementia. It is not absolutely no historian not recall why she was admitted to the hospital where she lives for the name of any family members. She is in no acute distress requires a sitter for agitation and attempting to get out of the bed unassisted. Otherwise all information is taken from patient's medical records. She was admitted for facial cellulitis findings consistent with underlying infectious process. Problems: Additional Assessment/Plan Discussed ongoing level of care with pts son Kosta... he is in agreement with current level of carebut also in agrewement with changing code to chemical code.. Her quality of life is not good , not able to do any ADL's without assistance. He gave me a good idea of her quality of life anbd degree of dementia which is at her baseline here. will make appropriate changes to code.. all PC issues have been discussed . Consultation Date/Type/Reason Admit Date/Time Aug 27, 2017 at 15:47 Initial Consult Date Type of Consultation: Palliative care Exam/Review of Systems Vital Signs Vitals Vital Signs Date Time Temp Pulse Resp B/P Pulse Ox O2 Delivery O2 Flow Rate FiO2 08/29/17 16:22 84 08/29/17 15:30 98.6 20 151/65 97 08/27/17 17:59 Room Air Intake and Output 08/28/17 08/28/17 08/29/17 15:00 23:00 07:00 Intake Total 1300 ml 880 ml Balance 1300 ml 880 ml Results Result Diagram: 08/29/17 0926 08/29/17 0700 Results 24 hrs Laboratory Tests Test 08/29/17 07:00 08/29/17 09:26 Sodium Level 141 Potassium Level 3.4 L Chloride Level 109 Carbon Dioxide Level 26 Anion Gap 9 Blood Urea Nitrogen 7 Creatinine 0.81 Glucose Level 98 Calcium Level 8.3 L White Blood Count 8.9 # Red Blood Count 4.55 Hemoglobin 13.6 Hematocrit 40.7 Mean Corpuscular Volume 89.5 Mean Corpuscular Hemoglobin 29.9 Mean Corpuscular Hemoglobin Concent 33.4 Red Cell Distribution Width 14.3 Platelet Count 223 # Mean Platelet Volume 10.4 Neutrophils % 60.6 Lymphocytes % 22.6 Monocytes % 9.9 Eosinophils % 4.0 Basophils % 1.1 Nucleated Red Blood Cells % 0.0 Neutrophils # 5.4 Lymphocytes # 2.0 Monocytes # 0.9 Eosinophils # 0.4 Basophils # 0.1 Nucleated Red Blood Cells # 0.0 Medications Medications Current Medications Ondansetron HCl (Zofran Inj) 4 mg Q6H PRN IV NAUSEA AND/OR VOMITING; Start 08/27/17 at 18:00 Acetaminophen (Tylenol Tab) 650 mg Q6H PRN PO PAIN LEVEL 1-3 OR FEVER; Start 08/27/17 at 18:00 Acetaminophen (Tylenol Supp) 650 mg Q6H PRN [place] PAIN LEVEL 1-3 OR FEVER; Start 08/27/17 at 18:00 Acetaminophen/ Hydrocodone Bitart ([place] (5/325)) 1 tab Q6H PRN PO MODERATE PAIN LEVEL 4-6; Start 08/27/17 at 18:00 Acetaminophen/ Hydrocodone Bitart ([place] (5/325)) 2 tab Q6H PRN PO SEVERE PAIN LEVEL 7-10; Start 08/27/17 at 18:00 Morphine Sulfate (morphine) 2 mg Q4H PRN IV SEVERE PAIN LEVEL 7-10; Start 08/27 at 18:00 Docusate Sodium (Colace) 100 mg Q12H PRN PO CONSTIPATION; Start 08/27/17 at 18: 00 Magnesium Hydroxide (Milk Of Mag) 30 ml DAILY PRN PO CONSTIPATION; Start at 18:00 Bisacodyl (Dulcolax Supp) 10 mg DAILY PRN [place] CONSTIPATION; Start 08/27/17 at 18 :00 IV Flush 10 ml 10 ml PRN PRN IV IV PROTOCOL; Start 08/27/17 at 19:00 Vancomycin HCl 100 ml @ 100 mls/hr Q24H IVPB Last administered on 08/28/17t 16:11; Admin Dose 100 MLS/HR; Start 08/28/17 at 16:30 Potassium Chloride/Sodium Chloride (NS-KCl 20 Meq) 1,000 ml @ 80 mls/hr [id number] IV Last administered on 08/29/17 05:20; Admin Dose 80 MLS/HR; Start 08/28/17 at 15:30 Pantoprazole 40 mg 40 mg DAILY@06 PO Last administered on 08/29/17 05:20; Admin Dose 40 MG; Start 08/29/17 at 06:00 Cefepime HCl (Maxipime 2gm/50 ml (Pmx)) 50 ml @ 100 mls/hr Q24H IVPB Last administered on 08/29/17 05:20; Admin Dose 100 MLS/HR; Start 08/29/17 at 06: 00 Miscellaneous Information (*Rx Drug Level Order Reminder*) VANCOMYCIN TROUGH AT 1530 ONCE ONCE XX ; Start 08/30/17 at 15:30; Stop 08/30/17 at 15:31 JACKI CORNELL Aug 29, 2017 16:48
[2017-08-30] VITALS (13 sets, daily range): BP systolic 110–129; BP diastolic 53–63; PULSE 67–91; RESP 18
[2017-08-30] MEDS: NS + KCL 20 MEQ 1,000 ML IV SCH ×2 (04:31→18:07)
[2017-08-30] MEDS: PANTOPRAZOLE (EC) 40 MG TAB PO SCH (05:39)
[2017-08-30] MEDS: CEFEPIME 2GM/50 ML (PMX) 50 ML IVPB SCH (05:40)
[2017-08-30 09:26] LABS: CALCIUM 8.2 mg/dl (8.4-10.2); CREATININE 0.83 mg/dl (0.44-1.00); POTASSIUM 3.9 mmol/L (3.5-5.1)
[2017-08-30] MEDS ORDERED: CEPH500C PO (12:46)
--- NOTE | 2017-08-30 12:52 | DS ---
Date/Time of Note Date/Time of Note DATE: 08/30/17 TIME: 12:47 Discharge Summary Admission/Discharge Info Admit Date/Time Aug 27, 2017 at 15:47 Discharge Date/Time Discharge Diagnosis 1. UTI, stable on keflex 2. Sepsis, improved 3. Hypokalemia, corrected 4. Dementia, chronic 5. facial cellulitis, on keflex Patient Condition: Stable Hospital Course This is an 86 lesion in the dementia is brought to the ER and facial redness. Patient is not oriented and unable to give any meaningful history and as such information is gathered from chart review. When patient presented to the ER, she had a white count of 13.1, bicarb 20, initial lactic 3.2 which increased to 6.3 but the third 1 normalized 1.1. Urinalysis is consistent with UTI. On physical exam, she does have redness on both of her cheeks and her nose as well as left [place]-orbital area. Patient is getting iv antibiotics with cefepime and vancomycin for UTI and cellulitis on face. She is also getting IVF for sepsis. She has been afebrile, stable vital signs. Urine culture back as E. Coli and Gamma strep, she will be on keflex on discharge. Home Meds Active Scripts Cephalexin* (Cephalexin*) 500 Mg Capsule, 500 MG PO Q6, #28 CAP Prov:THOR EDWARDS MD 08/30/17 Primary Care Provider Not On Staff Doctor Pending Labs Laboratory Tests Test 08/30/17 07:09 Sodium Level 141mmol/L (135-144) Potassium Level 3.9mmol/L (3.5-5.1) Chloride Level 110mmol/L (97-110) Carbon Dioxide Level 25mmol/L (21-31) Anion Gap 10 (8-16) Blood Urea Nitrogen 12mg/dl (7-20) Creatinine 0.83mg/dl (0.44-1.00) Glucose Level 100mg/dl (70-220) Calcium Level 8.2mg/dl (8.4-10.2) THOR EDWARDS MD Aug 30, 2017 12:52
--- NOTE | 2017-08-30 13:44 | CONS ---
Date/Time of Note Date/Time of Note DATE: 08/30/17 TIME: 13:43 Consult Date/Type/Reason Admit Date/Time Aug 27, 2017 at 15:47 Initial Consult Date Type of Consultation: ID Objective Vital Signs Date Time Temp Pulse Resp B/P Pulse Ox O2 Delivery O2 Flow Rate FiO2 08/30/17 11:30 98.3 91 18 127/62 97 08/27/17 17:59 Room Air Intake and Output 08/29/17 08/29/17 08/30/17 15:00 23:00 07:00 Intake Total 1580 ml 470 ml Balance 1580 ml 470 ml Results/Medications Result Diagram: 08/29/17 0926 08/30/17 0709 Results 24 hrs Laboratory Tests Test 08/30/17 07:09 Sodium Level 141 Potassium Level 3.9 Chloride Level 110 Carbon Dioxide Level 25 Anion Gap 10 Blood Urea Nitrogen 12 Creatinine 0.83 Glucose Level 100 Calcium Level 8.2 L Medications Current Medications Ondansetron HCl (Zofran Inj) 4 mg Q6H PRN IV NAUSEA AND/OR VOMITING; Start 08/27/17 at 18:00 Acetaminophen (Tylenol Tab) 650 mg Q6H PRN PO PAIN LEVEL 1-3 OR FEVER; Start 08/27/17 at 18:00 Acetaminophen (Tylenol Supp) 650 mg Q6H PRN [place] PAIN LEVEL 1-3 OR FEVER; Start 08/27/17 at 18:00 Acetaminophen/ Hydrocodone Bitart ([place] (5/325)) 1 tab Q6H PRN PO MODERATE PAIN LEVEL 4-6; Start 08/27/17 at 18:00 Acetaminophen/ Hydrocodone Bitart ([place] (5/325)) 2 tab Q6H PRN PO SEVERE PAIN LEVEL 7-10; Start 08/27/17 at 18:00 Morphine Sulfate (morphine) 2 mg Q4H PRN IV SEVERE PAIN LEVEL 7-10; Start 08/27 at 18:00 Docusate Sodium (Colace) 100 mg Q12H PRN PO CONSTIPATION; Start 08/27/17 at 18: 00 Magnesium Hydroxide (Milk Of Mag) 30 ml DAILY PRN PO CONSTIPATION; Start at 18:00 Bisacodyl (Dulcolax Supp) 10 mg DAILY PRN [place] CONSTIPATION; Start 08/27/17 at 18 :00 IV Flush 10 ml 10 ml PRN PRN IV IV PROTOCOL; Start 08/27/17 at 19:00 Vancomycin HCl 100 ml @ 100 mls/hr Q24H IVPB Last administered on 08/29/17 16:35; Admin Dose 100 MLS/HR; Start 08/28/17 at 16:30 Potassium Chloride/Sodium Chloride (NS-KCl 20 Meq) 1,000 ml @ 80 mls/hr [id number] IV Last administered on 08/30/17 04:31; Admin Dose 80 MLS/HR; Start 08/28/17 at 15:30 Pantoprazole 40 mg 40 mg DAILY@06 PO Last administered on 08/30/17 05:39; Admin Dose 40 MG; Start 08/29/17 at 06:00 Cefepime HCl (Maxipime 2gm/50 ml (Pmx)) 50 ml @ 100 mls/hr Q24H IVPB Last administered on 08/30/17 05:40; Admin Dose 100 MLS/HR; Start 08/29/17 at 06: 00 Miscellaneous Information (*Rx Drug Level Order Reminder*) VANCOMYCIN TROUGH AT 1530 ONCE ONCE XX ; Start 08/30/17 at 15:30; Stop 08/30/17 at 15:31 Assessment/Plan Chief Complaint/Hosp Course SUBJECTIVE: The patient is awake, looks comfortable, no fevers overnight. MICROBIOLOGY: Urine culture grew E. coli and alpha hemolytic strep species. ANTIMICROBIALS: The patient is on IV vancomycin and cefepime. PHYSICAL EXAMINATION: GENERAL: This is a chronically ill-appearing, elderly woman who is in no distress. HEENT: Head atraumatic, normocephalic. Sclerae anicteric. NECK: The patient has a significant swelling of the face and periorbital that is getting better today. Buccal mucosa dry. NECK: Supple. CHEST: Rise symmetrical. Breath sounds diminished. HEART: S1, S2. ABDOMEN: Soft, bowel tones present. EXTREMITIES: No cyanosis. ASSESSMENT: 1. Facial cellulitis. 2. Urinary tract infection. 3. Dementia. 4. Hypertension. PLAN: Patient remains stable. Facial erythema improving. Continue present care , antibiotics, monitor postvoid residuals, await for clinical improvement. Problems: MAGDALENE HUMMEL NP Aug 30, 2017 13:44
--- NOTE | 2017-08-30 14:29 | CONS ---
Date/Time of Note Date/Time of Note DATE: 08/30/17 TIME: 14:27 Assessment/Plan Assessment/Plan Chief Complaint/Hosp Course Asked to see this 86-year-old female who was admitted [facility] with facial cellulitis and what appears to be delirium on dementia. It is not absolutely no historian not recall why she was admitted to the hospital where she lives for the name of any family members. She is in no acute distress requires a sitter for agitation and attempting to get out of the bed unassisted. Otherwise all information is taken from patient's medical records. She was admitted for facial cellulitis findings consistent with underlying infectious process. Problems: Consultation Date/Type/Reason Admit Date/Time Aug 27, 2017 at 15:47 Type of Consultation: Pallaitive Care 24 HR Interval Summary Free Text/Dictation Patient does qualify for out patient Hospice Care.. will ask SWS to consult. Exam/Review of Systems Vital Signs Vitals Vital Signs Date Time Temp Pulse Resp B/P Pulse Ox O2 Delivery O2 Flow Rate FiO2 08/30/17 11:30 98.3 91 18 127/62 97 08/27/17 17:59 Room Air Intake and Output 08/29/17 08/29/17 08/30/17 15:00 23:00 07:00 Intake Total 1580 ml 470 ml Balance 1580 ml 470 ml Results Result Diagram: 08/29/17 0926 08/30/17 0709 Results 24 hrs Laboratory Tests Test 08/30/17 07:09 Sodium Level 141 Potassium Level 3.9 Chloride Level 110 Carbon Dioxide Level 25 Anion Gap 10 Blood Urea Nitrogen 12 Creatinine 0.83 Glucose Level 100 Calcium Level 8.2 L Medications Medications Current Medications Ondansetron HCl (Zofran Inj) 4 mg Q6H PRN IV NAUSEA AND/OR VOMITING; Start 08/27/17 at 18:00 Acetaminophen (Tylenol Tab) 650 mg Q6H PRN PO PAIN LEVEL 1-3 OR FEVER; Start 08/27/17 at 18:00 Acetaminophen (Tylenol Supp) 650 mg Q6H PRN [place] PAIN LEVEL 1-3 OR FEVER; Start 08/27/17 at 18:00 Acetaminophen/ Hydrocodone Bitart ([place] (5/325)) 1 tab Q6H PRN PO MODERATE PAIN LEVEL 4-6; Start 08/27/17 at 18:00 Acetaminophen/ Hydrocodone Bitart ([place] (5/325)) 2 tab Q6H PRN PO SEVERE PAIN LEVEL 7-10; Start 08/27/17 at 18:00 Morphine Sulfate (morphine) 2 mg Q4H PRN IV SEVERE PAIN LEVEL 7-10; Start 08/27 at 18:00 Docusate Sodium (Colace) 100 mg Q12H PRN PO CONSTIPATION; Start 08/27/17 at 18: 00 Magnesium Hydroxide (Milk Of Mag) 30 ml DAILY PRN PO CONSTIPATION; Start at 18:00 Bisacodyl (Dulcolax Supp) 10 mg DAILY PRN [place] CONSTIPATION; Start 08/27/17 at 18 :00 IV Flush 10 ml 10 ml PRN PRN IV IV PROTOCOL; Start 08/27/17 at 19:00 Vancomycin HCl 100 ml @ 100 mls/hr Q24H IVPB Last administered on 08/29/17 16:35; Admin Dose 100 MLS/HR; Start 08/28/17 at 16:30 Potassium Chloride/Sodium Chloride (NS-KCl 20 Meq) 1,000 ml @ 80 mls/hr [id number] IV Last administered on 08/30/17 04:31; Admin Dose 80 MLS/HR; Start 08/28/17 at 15:30 Pantoprazole 40 mg 40 mg DAILY@06 PO Last administered on 08/30/17 05:39; Admin Dose 40 MG; Start 08/29/17 at 06:00 Cefepime HCl (Maxipime 2gm/50 ml (Pmx)) 50 ml @ 100 mls/hr Q24H IVPB Last administered on 08/30/17 05:40; Admin Dose 100 MLS/HR; Start 08/29/17 at 06: 00 Miscellaneous Information (*Rx Drug Level Order Reminder*) VANCOMYCIN TROUGH AT 1530 ONCE ONCE XX ; Start 08/30/17 at 15:30; Stop 08/30/17 at 15:31 JACKI CORNELL Aug 30, 2017 14:29
[2017-08-30] MEDS: VANCOMYCIN 500MG/NS (PMX) 100 ML IVPB SCH (16:53)
[2017-08-31] VITALS (11 sets, daily range): BP systolic 119–144; BP diastolic 62–80; PULSE 49–90; RESP 18
[2017-08-31] MEDS ORDERED: VANCOMYCIN 500MG/NS (PMX) 100 ML IVPB SCH (05:00)
[2017-08-31] MEDS: PANTOPRAZOLE (EC) 40 MG TAB PO SCH (06:17)
[2017-08-31] MEDS: CEFEPIME 2GM/50 ML (PMX) 50 ML IVPB SCH (06:17)
[2017-08-31] MEDS: NS + KCL 20 MEQ 1,000 ML IV SCH ×2 (07:32→09:13)
[2017-08-31 08:45] LABS: CREATININE 0.77 mg/dl (0.44-1.00)
--- NOTE | 2017-08-31 14:08 | DS ---
Date/Time of Note Date/Time of Note DATE: 08/31/17 TIME: 14:06 Discharge Summary Admission/Discharge Info Admit Date/Time Aug 27, 2017 at 15:47 Discharge Date/Time Discharge Diagnosis 1. UTI, stable on keflex 2. Sepsis, improved 3. Hypokalemia, corrected 4. Dementia, chronic 5. facial cellulitis, on keflex Patient Condition: Stable Hospital Course This is an 86 lesion in the dementia is brought to the ER and facial redness. Patient is not oriented and unable to give any meaningful history and as such information is gathered from chart review. When patient presented to the ER, she had a white count of 13.1, bicarb 20, initial lactic 3.2 which increased to 6.3 but the third 1 normalized 1.1. Urinalysis is consistent with UTI. On physical exam, she does have redness on both of her cheeks and her nose as well as left [place]-orbital area. Patient is getting iv antibiotics with cefepime and vancomycin for UTI and cellulitis on face. She is also getting IVF for sepsis. She has been afebrile, stable vital signs. Urine culture back as E. Coli and Gamma strep, she will be on keflex on discharge. The daughter prefers to have patient to go back to rehabilitation assistant living instead of SNF. Home Meds Active Scripts Cephalexin* (Cephalexin*) 500 Mg Capsule, 500 MG PO Q6, #28 CAP Prov:THOR EDWARDS MD 08/30/17 Follow-up Plan PCP in one week Primary Care Provider Not On Staff Doctor Pending Labs Laboratory Tests Test 08/30/17 15:25 08/31/17 07:54 Vancomycin Level Trough < 5.0ug/ml (10.0-20.0) Blood Urea Nitrogen 12mg/dl (7-20) Creatinine 0.77mg/dl (0.44-1.00) THOR EDWARDS MD Aug 31, 2017 14:08
--- NOTE | 2017-08-31 14:40 | CONS ---
Date/Time of Note Date/Time of Note DATE: 08/31/17 TIME: 14:37 Consult Date/Type/Reason Admit Date/Time Aug 27, 2017 at 15:47 Type of Consultation: ID Objective Vital Signs Date Time Temp Pulse Resp B/P Pulse Ox O2 Delivery O2 Flow Rate FiO2 08/31/17 12:17 98.0 81 18 119/62 99 08/27/17 17:59 Room Air Intake and Output 08/30/17 08/30/17 08/31/17 15:00 23:00 07:00 Intake Total 1840 ml 330 ml Balance 1840 ml 330 ml Results/Medications Result Diagram: 08/29/17 0926 08/31/17 0754 Results 24 hrs Laboratory Tests Test 08/30/17 15:25 08/31/17 07:54 Vancomycin Level Trough < 5.0 L Blood Urea Nitrogen 12 Creatinine 0.77 Medications Current Medications Ondansetron HCl (Zofran Inj) 4 mg Q6H PRN IV NAUSEA AND/OR VOMITING; Start 08/27/17 at 18:00 Acetaminophen (Tylenol Tab) 650 mg Q6H PRN PO PAIN LEVEL 1-3 OR FEVER; Start 08/27/17 at 18:00 Acetaminophen (Tylenol Supp) 650 mg Q6H PRN NE PAIN LEVEL 1-3 OR FEVER; Start 08/27/17 at 18:00 Acetaminophen/ Hydrocodone Bitart ([place] (5/325)) 1 tab Q6H PRN PO MODERATE PAIN LEVEL 4-6; Start 08/27/17 at 18:00 Acetaminophen/ Hydrocodone Bitart ([place] (5/325)) 2 tab Q6H PRN PO SEVERE PAIN LEVEL 7-10; Start 08/27/17 at 18:00 Morphine Sulfate (morphine) 2 mg Q4H PRN IV SEVERE PAIN LEVEL 7-10; Start 08/27 at 18:00 Docusate Sodium (Colace) 100 mg Q12H PRN PO CONSTIPATION; Start 08/27/17 at 18: 00 Magnesium Hydroxide (Milk Of Mag) 30 ml DAILY PRN PO CONSTIPATION; Start at 18:00 Bisacodyl (Dulcolax Supp) 10 mg DAILY PRN NE CONSTIPATION; Start 08/27/17 at 18 :00 IV Flush 10 ml 10 ml PRN PRN IV IV PROTOCOL; Start 08/27/17 at 19:00 Potassium Chloride/Sodium Chloride (NS-KCl 20 Meq) 1,000 ml @ 80 mls/hr [id number] IV Last administered on 08/31/17 09:13; Admin Dose 80 MLS/HR; Start 08/28/17 at 15:30 Pantoprazole 40 mg 40 mg DAILY@06 PO Last administered on 08/31/17 06:17; Admin Dose 40 MG; Start 08/29/17 at 06:00 Cefepime HCl 50 ml @ 100 mls/hr Q24H IVPB Last administered on 08/31/17 06: 17; Admin Dose 100 MLS/HR; Start 08/29/17 at 06:00 Vancomycin HCl (Vancocin) 100 ml @ 100 mls/hr Q12H IVPB Last administered on 08/31/17 05:47; Admin Dose 100 MLS/HR; Start 08/31/17 at 05:00 Assessment/Plan Chief Complaint/Hosp Course SUBJECTIVE: The patient is awake, facial cellulitis resolving, no fevers overnight. MICROBIOLOGY: Urine culture grew E. coli and alpha hemolytic strep species. ANTIMICROBIALS: The patient is on IV vancomycin and cefepime. PHYSICAL EXAMINATION: GENERAL: This is a chronically ill-appearing, elderly woman who is in no distress. HEENT: Head atraumatic, normocephalic. Sclerae anicteric. NECK: The patient has a significant swelling of the face and periorbital that is getting better today. Buccal mucosa dry. NECK: Supple. CHEST: Rise symmetrical. Breath sounds diminished. HEART: S1, S2. ABDOMEN: Soft, bowel tones present. EXTREMITIES: No cyanosis. ASSESSMENT: 1. Facial cellulitis==> resolving. 2. Urinary tract infection. 3. Dementia. 4. Hypertension. PLAN: Patient remains stable. Will change Cefepime to Rocephin, continue Vanco for now, anticipate downgrade to oral Bactrim [facility] staff Problems: MAGDALENE HUMMEL NP Aug 31, 2017 14:40
== END 2017-08-31 16:40 | DRG 872 ==
LOC: E/R 10:44 → MS4 15:47
PROVIDERS: ADMIT Hospitalist; ATTEND Hospitalist
PROC: 02HV33Z Insertion of Infusion Device into Superior Vena Cava, Percutaneous Approach (ICD-10-PCS; principal; 2017-08-27)
DX: A41.9 Sepsis, unspecified organism (principal); E87.2 Acidosis; N39.0 Urinary tract infection, site not specified; F03.90 Unspecified dementia, unspecified severity, without behavioral disturbance, psychotic disturbance, mood disturbance, and anxiety; L03.211 Cellulitis of face; R65.20 Severe sepsis without septic shock; R21 Rash and other nonspecific skin eruption; E86.0 Dehydration; E87.6 Hypokalemia; B96.20 Unspecified Escherichia coli [E. coli] as the cause of diseases classified elsewhere; I10 Essential (primary) hypertension; Z66 Do not resuscitate; Z51.5 Encounter for palliative care
CPT/HCPCS: 36415; 36569; 71010; 76937; 80048; 80053; 80061; 80202; 81001; 81003; 82565; 83036; 83605; 83735; 84100; 84436; 84443; 84479; 84484; 84520; 85025; 85610; 85730; 87040; 87045; 87086; 93005; 96374; 96375; C1769; C9113; J0692; J0696; J2060; J2543; J3370; J3480; J7030